=== PATIENT | male | born 1975 | race Caucasian/White ===

== ENCOUNTER 2023-05-06 22:33 | Emergency (ER) | payer BC, SELFPAY ==
[2023-05-06] VITALS (10 sets, daily range): BP systolic 137; BP diastolic 92; PULSE 59–73; RESP 6–20; TEMP 36.5; O2SAT 96–99; BMI 34.0
--- NOTE | 2023-05-06 22:58 | PC.NURSE ---
Chest pain x3 days. He thought it was acid reflux, took Pepcid with no relief. Has had chest pain in the past but never this bad. No cardiac history
--- NOTE | 2023-05-06 23:14 | ECG_ITS ---
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
--- NOTE | 2023-05-06 23:14 | XR_ITS ---
The [place] [id number] Patient Name: LORENE MALIN MRN: [id number] date: 1975 Sex: M Assigned Patient Location: ER Current Patient Location: ER Accession/Order Number: [id number] Exam Date: 05/06/2023 23:22 Report Date: 05/07/2023 00:00 At the request of: SEGUN VARGAS Procedure: XR chest 1V EXAM: XR chest 1V HISTORY: chest pain COMPARISON: Chest x-ray 12/20/2018 TECHNIQUE: Single frontal view chest x-ray FINDINGS: No lung consolidation, large pleural effusion, pneumothorax, or acute bony abnormality. Cardiac size is unremarkable. XR/XR chest 1V IMPRESSION: No radiographic evidence for acute chest abnormality. Electronically authenticated by: SABRINA ANTONIO Date: 05/07/2023 00:00
--- NOTE | 2023-05-06 23:16 | ED_ITS ---
HPI - Chest Pain General Chief Complaint: Chest Pain Stated Complaint: Chest Pain x3 days Time Seen by Provider: 05/06/23 23:13 Source: patient Mode of arrival: walk-in Limitations: no limitations History of Present Illness HPI narrative: chest pain for 3 days. History of GERD. chest pain up and down past 3 days. ? dyspnea. No radiation of pain. No nausea or vomiting.Decided he needed to come in to have it checked MD complaint: Reports chest pain Related Data Home Medications Medication Instructions Recorded Confirmed gabapentin 300 mg capsule mg 05/06/23 Allergies Allergy/AdvReac Type Severity Reaction Status Date / Time Penicillins Allergy Unknown Verified 05/06/23 22:41 Review of Systems ROS Status of ROS 10 or more systems reviewed and unremark able except as noted in history and below [facility] Social History Smoking status: Never smoker Exam Constitutional Vital Signs, click to edit/add: Last Vital Signs Temp 97.7 F 05/06/23 22:37 Pulse 63 05/06/23 22:37 Resp 20 05/06/23 22:37 BP 137/92 H 05/06/23 22:37 Pulse Ox 98 05/06/23 22:37 O2 Del Method Room Air 05/06/23 22:37 Common normals: no apparent distress, average body habitus, oriented x3, no limitations, healthy appearing, alert and well nourished [facility] Common normals: normocephalic and head/scalp atraumatic Eye Common normals: PERRL, EOMs intact bilaterally and conjunctivae normal Respiratory Common normals: normal respiratory effort, no retractions, no use of accessory muscles and clear to auscultation bilaterally Cardio Common normals: regular rate, regular rhythm, S1 normal heart sound and S2 normal heart sound GI Common normals: Normal to inspection, nondistended, normoactive bowel sounds present, soft to palpation and non-tender Extremity Common normals: normal to inspection and full ROM Neuro Common normals: oriented x3, CN's II-XII intact bilaterally and moves all extremities Psych Appearance: grossly normal Course Vital Signs Vital signs: Vital Signs Temperature 97.7 F 05/06/23 22:37 Pulse Rate 63 05/06/23 22:37 Respiratory Rate 20 05/06/23 22:37 Blood Pressure 137/92 H 05/06/23 22:37 Pulse Oximetry 98 05/06/23 22:37 Oxygen Delivery Method Room Air 05/06/23 22:37 Temperature 97.7 F 05/06/23 22:37 Pulse Rate 63 05/06/23 22:37 Respiratory Rate 20 05/06/23 22:37 Blood Pressure 137/92 H 05/06/23 22:37 Pulse Oximetry 98 05/06/23 22:37 Oxygen Delivery Method Room Air 05/06/23 22:37 MDM - Chest Pain MDM Narrative Medical decision making narrative: history of GERD. Presents with waxing and waning chest pain past 3 days. Improved after GI cocktail. Near complete relief.Gave nitro SL and there was no benefit serial troponin neg. Patient discharged home with a prescription for Prilosec Lab Data Labs: Lab Results 05/06/23 05/07/23 Range/Units 22:50 01:39 WBC 7.6 (4.0-11.0) 10^3/uL RBC 4.81 (4.70-6.10) 10^6/uL Hgb 15.0 (14.0-18.0) g/dL Hct 44.6 (42.0-54.0) % MCV 92.7 (80.0-94.0) fL MCH 31.2 (25.9-34.0) pg MCHC 33.6 (29.9-35.2) g/dL RDW 12.6 (11.0-15.0) % Plt Count 272 (150-450) 10^3/uL MPV 10.1 (9.5-13.5) fL Neut % (Auto) 52.3 (43.0-75.0) % Lymph % (Auto) 35.7 (20.5-60.0) % [place] % (Auto) 9.4 (1.7-12.0) % Eos % (Auto) 2.0 (0.9-7.0) % Baso % (Auto) 0.5 (0.2-2.0) % Neut # (Auto) 4.0 (1.4-6.5) 10^3/uL Lymph # (Auto) 2.7 (1.2-3.8) 10^3/uL [place] # (Auto) 0.7 (0.3-0.8) 10^3/uL Eos # (Auto) 0.2 (0.0-0.7) 10^3/uL Baso # (Auto) 0.0 (0.0-0.1) 10^3/uL Abs Immat Gran (auto) 0.01 (0.00-0.03) 10^3/uL Imm/Tot Granulo (auto) 0.1 (0.0-0.5) % D-Dimer <0.19 (<=0.59) mg/L FEU Troponin I High Sens <4.0 L <4.0 L (4.0-76.1) pg/mL Imaging Data Chest x-ray: Radiologist's impression: ITS Impressions Chest X-Ray 05/06/23 23:14 IMPRESSION: No radiographic evidence for acute chest abnormality. Electronically authenticated by: SABRINA ANTONIO Date: 05/07/2023 00:00 Discharge Plan Discharge Stand Alone Forms: Portal Instructions Chief Complaint: Chest Pain Clinical Impression: Atypical chest pain, GERD (gastroesophageal reflux disease) Patient Disposition: Home, Self-Care Prescriptions / Home Meds: No Action gabapentin 300 mg capsule Instructions: GERD (Gastroesophageal Reflux Disease) (ED), Noncardiac Chest Pain (ED) Additional Instructions: follow up with your doctor in 2-3 days for recheck Referrals: Physician,Non-Staff, MD [Primary Care Provider] - 1 week
[2023-05-06 23:24] LABS: Basophils Percent Auto 0.5 % (0.2-2.0); Eosinophils Absolute Auto 0.2 10^3/uL (0.0-0.7); Hematocrit 44.6 % (42.0-54.0); Immature Granulocytes Abs Auto 0.01 10^3/uL (0.00-0.03); Immature Granulocytes Pct Auto 0.1 % (0.0-0.5); Lymphocytes Absolute Auto 2.7 10^3/uL (1.2-3.8); Lymphocytes Percent Auto 35.7 % (20.5-60.0); Mean Corpuscular HGB Conc 33.6 g/dL (29.9-35.2); Mean Corpuscular Hemoglobin 31.2 pg (25.9-34.0); Mean Corpuscular Volume 92.7 fL (80.0-94.0); Mean Platelet Volume 10.1 fL (9.5-13.5); Monocytes Absolute Auto 0.7 10^3/uL (0.3-0.8); Monocytes Percent Auto 9.4 % (1.7-12.0); Neutrophils Percent Auto 52.3 % (43.0-75.0); Platelet Count 272 10^3/uL (150-450); Red Blood Count 4.81 10^6/uL (4.70-6.10); Red Cell Distribution Width 12.6 % (11.0-15.0); White Blood Count 7.6 10^3/uL (4.0-11.0)
[2023-05-06] MEDS: lidocaine HCL 15 ML, MAG HYDROX/ALUMINUM HYD/SIMETH 30 ML, HYOSCYAMINE SULFATE 0.25 MG PO (23:30)
[2023-05-06 23:33] LABS: D Dimer <0.19 mg/L FEU (<=0.59)
[2023-05-06 23:39] LABS: Troponin I High Sensitivity <4.0 pg/mL (4.0-76.1)
[2023-05-07] VITALS (22 sets, daily range): BP systolic 118; BP diastolic 71; PULSE 46–70; RESP 11–26; O2SAT 95–98
[2023-05-07] MEDS: NITROGLYCERIN 0.4 MG BOTTLE 0.400000000000000022 MG SL (00:18)
[2023-05-07 03:01] LABS: Troponin I High Sensitivity <4.0 pg/mL (4.0-76.1)
== END 2023-05-07 03:50 | disposition home or self-care (01) ==
PROVIDERS: Emergency Provider Internal Medicine
DX: R07.89 Other chest pain (principal); K21.9 Gastro-esophageal reflux disease without esophagitis; Z79.899 Other long term (current) drug therapy
CPT/HCPCS: 36415; 71045; 84484; 85025; 85378; 93005; 99285

== ENCOUNTER 2023-11-05 14:02 | Outpatient (OUT) | payer BC, SELFPAY ==
[2023-11-05 14:20] LABS: Basophils Percent Auto 0.6 % (0.2-2.0); Eosinophils Absolute Auto 0.1 10^3/uL (0.0-0.7); Eosinophils Percent Auto 2.3 % (0.9-7.0); Hematocrit 43.9 % (42.0-54.0); Immature Granulocytes Abs Auto 0.02 10^3/uL (0.00-0.03); Immature Granulocytes Pct Auto 0.3 % (0.0-0.5); Lymphocytes Absolute Auto 1.8 10^3/uL (1.2-3.8); Lymphocytes Percent Auto 29.7 % (20.5-60.0); Mean Corpuscular HGB Conc 34.2 g/dL (29.9-35.2); Mean Corpuscular Hemoglobin 31.1 pg (25.9-34.0); Mean Corpuscular Volume 90.9 fL (80.0-94.0); Mean Platelet Volume 9.6 fL (9.5-13.5); Monocytes Absolute Auto 0.6 10^3/uL (0.3-0.8); Monocytes Percent Auto 9.7 % (1.7-12.0); Neutrophils Absolute Auto 3.5 10^3/uL (1.4-6.5); Neutrophils Percent Auto 57.4 % (43.0-75.0); Platelet Count 256 10^3/uL (150-450); Red Blood Count 4.83 10^6/uL (4.70-6.10); Red Cell Distribution Width 12.6 % (11.0-15.0); White Blood Count 6.2 10^3/uL (4.0-11.0)
[2023-11-05 15:29] LABS: Alanine Aminotransferase 104 U/L (16-63); Albumin Level 3.6 g/dL (3.4-5.0); Alkaline Phosphatase 67 U/L (46-116); Anion Gap 12.4; Aspartate Amino Transferase 36 U/L (15-37); BUN Creatinine Ratio 16.4; Bilirubin Direct 0.1 mg/dL (0.0-0.2); Bilirubin Total 0.6 mg/dL (0.2-1.0); Calcium 9.4 mg/dL (8.5-10.1); Carbon Dioxide 29.3 mmol/L (21.0-32.0); Chloride 104 mmol/L (98-107); Chol HDL Ratio 4.3; Cholesterol 249 mg/dL (<=200); Estimated GFR (African America >60 (>=60); Estimated GFR (Non-African Ame >60 (>=60); Globulin 3.6 g/dL; Glucose 129 mg/dL (74-106); HDL Cholesterol 58 mg/dL (40-60); Potassium 3.7 mmol/L (3.5-5.1); Sodium 142 mmol/L (136-145); Thyroid Stimulating Hormone 1.108 uIU/mL (0.358-3.740); Total Protein 7.2 g/dL (6.4-8.2); Triglycerides 147 mg/dL (<=150); VLDL CHOLESTEROL 29.4 mg/dL
[2023-11-05 15:48] LABS: Estimated Average Glucose 111 mg/dL; Glycohemoglobin A1C 5.5 % (4.5-6.2)
== END 2023-11-05 14:03 | disposition home or self-care (01) ==
PROVIDERS: Visit Provider Family Medicine
DX: Z00.00 Encounter for general adult medical examination without abnormal findings (principal); Z79.899 Other long term (current) drug therapy
CPT/HCPCS: 36415; 80048; 80061; 80076; 83036; 84443; 85025; G0103

== ENCOUNTER 2024-09-11 00:05 | Emergency (ER) | payer BC, SELFPAY ==
[2024-09-11 00:08] VITALS: BP 133/99; PULSE 71; TEMP 36.6; O2SAT 98; BMI 25.1
--- NOTE | 2024-09-11 00:28 | ED_ITS ---
HPI HPI - Neck Pain/Injury General Chief Complaint: Neck Pain/Injury Stated Complaint: PINCHED NERVE IN R SIDE NECK Time Seen by Provider: 09/11/24 00:16 Source: patient Mode of arrival: walk-in Limitations: no limitations History of Present Illness HPI Narrative: cc - neck pain Pt with chronic neck pain and prior C6 surgery in 2013 or 2014 to remove bone spurs now presents with about 8-10 days of steadily worsening pain and stiffness to the posterolateral right neck. No injuries, falls, MVA or other trauma to account for the pain - woke up one morning and the pain was mild and now it has progressively gotten worse. no relief withflexeril and Ultram for the pain. RFates pain 10/10. No right or left UE weakness or paralysis. Related Data Previous Rx's ?Medication ?Instructions ?Recorded methylprednisolone 4 mg tablets in 4 mg PO DAILY #21 e a 09/11/24 a dose pack (Medrol (Jack)) nabumetone 750 mg tablet 750 mg PO BID PRN pain #14 t abs 09/11/24 Allergies Allergy/AdvReac Type Severity Reaction Status Date / Time Penicillins Allergy Unknown Unknown Verified 09/11/24 00:13 Opioid HPI Opioid Management Most Recent Opioid Data: Last Pain Scale 10 Today, 00:17 Last ED Pain Assessment Today, 00:17 PFS PFS Social History Smoking status: Never smoker Little interest or pleasure in doing things: not at all Feeling down, depressed, or hopeless: not at all Exam Narrative Exam Narrative: Nurses notes and vital signs reviewed and patient is not hypoxic. afebrile General: Well-appearing and in no apparent distress. Skin: Warm, dry, no pallor noted. No rash. Head: Normocephalic, atraumatic. Neck: Supple, no cervical lymphadenopathy. Midline cervical vertebral and rig ht posterolateral soft tissue tenderness on palpation. He has limited right rotation secondary to the pain. Cardiovascular: Normal peripheral perfusion. Respiratory: No accessory muscle use or respiratory distress. Back: No midline thoracic vertebral tenderness. No right or left scapular tenderness Musculoskeletal: normal ROM Neurological: A&O x4. No cranial nerve dysfunction observed. No truncal ataxia. Moves all extremities. Sensation intact. Psychiatric: Cooperative and interactive. Normal mood and affect. Constitutional Vital Signs, click to edit/add: Last Vital Signs Temp 97.9 F 09/11/24 00:08 Pulse 71 09/11/24 00:08 Resp 18 09/11/24 00:08 BP 133/99 H 09/11/24 00:08 Pulse Ox 98 09/11/24 00:08 O2 Del Method Room Air 09/11/24 00:08 Course Vital Signs Vital signs: Vital Signs Temperature 97.9 F 09/11/24 00:08 Pulse Rate 71 09/11/24 00:08 Respiratory Rate 18 09/11/24 00:08 Blood Pressure 133/99 H 09/11/24 00:08 Pulse Oximetry 98 09/11/24 00:08 Oxygen Delivery Method Room Air 09/11/24 00:08 Temperature 97.9 F 09/11/24 00:08 Pulse Rate 71 09/11/24 00:08 Respiratory Rate 18 09/11/24 00:08 Blood Pressure 133/99 H 09/11/24 00:08 Pulse Oximetry 98 09/11/24 00:08 Oxygen Delivery Method Room Air 09/11/24 00:08 MDM - Neck Pain/Injury MDM Narrative Medical decision making narrative: This is an acute exacerbation of chronic neck pain for this patient. No recent fall, trauma or other injury to account for this pain. It has been steadily increasing for about 10 days now. No relief with Ultram or Flexeril. The patient was given IM Solu-Medrol and IM Toradol performing discharged home with prescriptions for Relafen and Medrol Dosepak. No need for imaging at this time. He has an appointment with his PCP on Friday. Discharge Plan Discharge Chief Complaint: Neck Pain/Injury Clinical Impression: Acute neck pain, Chronic neck pain Patient Disposition: Home, Self-Care Time of Disposition Decision: 00:33 Prescriptions / Home Meds: New nabumetone 750 mg tablet 750 mg PO BID PRN (Reason: pain) Qty: 14 0RF methylprednisolone [Medrol (Jack)] 4 mg tablets,dose pack 4 mg PO DAILY Qty: 21 0RF Print Language: Turkish Instructions: Acute Neck Pain (ED), Chronic Neck Pain (DC) Referrals: Stuart Hill MD [Primary Care Provider, Family Practice] - 1 week
[2024-09-11] MEDS: METHYLPREDNISOLONE SOD SUCC PF 125 MG/2 ML VIAL IM (00:45)
[2024-09-11] MEDS: KETOROLAC TROMETHAMINE 60 MG/2 ML VIAL IM (00:45)
== END 2024-09-11 00:49 | disposition home or self-care (01) ==
PROVIDERS: Emergency Provider Emergency Medicine; PCP Family Medicine
DX: M54.2 Cervicalgia (principal); G89.29 Other chronic pain
CPT/HCPCS: 96372; 99284; J1885; J2919